=== PATIENT | female | born 1930 | race Caucasian/White ===

== ENCOUNTER 2016-05-08 08:10 | Inpatient (IN) | payer OTHER ==
[2016-05-08] MEDS ORDERED: NS 500 ML IV ONE (08:35)
[2016-05-08 09:05] LABS: MANUAL DIFF NEEDED? NO
[2016-05-08 09:09] LABS: BASO% 0.1 % (0.0-0.8); EOS# 0.01 X1000 (0.0-0.7); EOS% 0.1 % (0.0-10.0); HEMATOCRIT 39.8 % (37.0-47.0); HEMOGLOBIN 13.8 g/dL (12.0-16.0); LYMPH# 0.66 X1000 (1.2-3.4); LYMPH% 9.6 % (20.5-51.1); MCH 30.1 PG (27-31); MCHC 34.7 g/dL (33-37); MCV 86.9 FL (81-99); MONO# 0.57 X1000 (0.11-0.59); MONO% 8.3 % (1.7-9.3); MPV 10.6 FL (7.4-10.4); NEUT% 81.9 % (42.2-75.2); PLT 196 X1000 (130-400); RBC 4.58 XMIL (4.2-5.4)
--- NOTE | 2016-05-08 09:22 | PROVIDER DOCUMENTATION ---
HPI-General Adult - General Chief Complaint: Fall Stated Complaint: FALL,WEAKNESS Time Seen by Provider: 05/08/16 08:20 Allergies/Adverse Reactions: Patient Allergies Allergy/AdvReac Type Severity Reaction Status Date / Time Penicillins Allergy RASH Verified 05/08/16 10:00 Sulfa (Sulfonamide Allergy Unknown Verified 05/08/16 10:00 Antibiotics) Home Medications: Home Medication List Medication Instructions Recorded Confirmed Last Taken Type Aspirin [Aspir-Low] 81 mg PO DAILY 05/08/16 05/08/16 Unknown History Ergocalciferol (Vitamin D2) 50,000 unit PO DIRECTED 05/08/16 05/08/16 Unknown History [Drisdol] Gabapentin 200 mg PO BID 05/08/16 05/08/16 Unknown History Levothyroxine [Synthroid] 75 microgm PO DAILY 05/08/16 05/08/16 Unknown History Multivitamins/Minerals [Centrum 1 tab PO DAILY 05/08/16 05/08/16 Unknown History Silver] - History of Present Illness -Gen Adult Nature of Presenting Problems: patient is a 85 y/o F that presents to the ER with generalized pain after falling last pm and couldn't get up. patient reports scooting around the house until she got to the kitchen. She ate some peanut butter due to believing her blood sugar was low. patient reports laying in floor all night and she forgot that she had a life-alert call button on. She pushed it at 7am this morning and EMS arrived. she complains of generalized pain now Location of Pain/Injury: reports: generalized Pain Radiation: reports: no radiation Quality of Pain: reports: aching Severity: reports: mild, moderate Onset/Duration: reports: abrupt, last night Timing: reports: still present, improving Context/Activities at Onset: reports: none Modifying Factors: worse with: movement Associated Symptoms: reports: back/neck pain, joint pain, muscle aches, weakness , trouble walking. denies: chest pain, EENT symptoms, fatigue, fever/chills, genitourinary problems, nausea, vomiting Similar Symptoms Previously?: No Recently seen or treated by another doctor?: No Review of Systems - Adult - REVIEW OF SYSTEMS - ADULT Constitutional: denies: chills, fever Eyes: denies: decreased vision, blurred vision, double vision Ears, Nose, Mouth & Throat: denies: ear discharge, epistaxis, mouth/dental pain , mouth swelling Cardiovascular: denies: chest pain, palpitations, syncope Respiratory: denies: cough, shortness of breath, wheezing Gastrointestinal: denies: abdominal pain, diarrhea, nausea, vomiting Genitourinary: reports: no symptoms reported Musculoskeletal: reports: muscle aches. denies: frequent leg cramps Integumentary: reports: no symptoms reported Neurological: denies: dizziness/vertigo, headache/migraines, seizure, syncope Psychiatric: reports: no symptoms reported Endocrine: reports: no symptoms reported Hematologic/Lymphatic: reports: no symptoms reported Allergic/Immunologic: reports: no symptoms reported All Other Systems: Reviewed and Negative Past History - Adult - PAST MEDICAL HISTORY-ADULT Review of Records: reports: Old Records Reviewed, Nursing Assessment Review, Medications Reviewed Cardiovascular: reports: hyperlipidemia Endocrine/Immune: reports: Diabetes, thyroid disorder (hypo) - PRIOR SURGERIES/PROCEDURES Surgical/Procedure History: reports: reviewed, not pertinent - IMMUNIZATION STATUS Childhood Immunizations: See Nurse Assessment Flu Vaccine: See Nurse Assessment - FAMILY HISTORY Family History: reviewed, not pertinent - SOCIAL HISTORY Smoking: non-smoker Substance Use: none/never Alcohol Use Frequency: never Living Situation: family Physical Exam-General - PHYSICAL EXAM-ADULT Initial Vital Signs Reviewed: Yes - CONSTITUTIONAL General Appearance: alert, no apparent distress, other (urine smell) - EYES Eyes: PERRL/EOMI, pink conjunctivae - HEAD, EARS, NOSE, MOUTH & THROAT HENMT: normocephalic/atraumatic, moist mucous membranes, normal ENT inspection - NECK Neck: full range of motion, normal inspection. negative: lymphadenopathy - RESPIRATORY Respiratory: chest non-tender, lungs clear, normal breath sounds, no respiratory distress, no accessory muscle use - CARDIOVASCULAR Cardiovascular: regular rate, rhythm, no edema, no murmur - GASTROINTESTINAL (ABDOMEN) Abdominal Exam: normal bowel sounds, non tender, soft, no organomegaly, no pulsatile mass - MUSCULOSKELETAL Back Exam: no CVA tenderness, no vertebral tenderness Extremity: no pedal edema, normal capillary refill, pelvis stable, tenderness ( bilateral thighs with palpation) - SKIN Integumentary: normal color, warm/dry. negative: ecchymosis, laceration(s) - NEUROLOGIC Neurologic: grossly normal, no motor/sensory deficits - PSYCHIATRIC Psych/Mental Status: normal mood/affect, normal thought content, normal thought process, oriented x 3 Progress - PLAN OF CARE/RESULTS Progress/Plan/Lab Results: plan of care-labs, xrays, ct scans 1003-Hospitalist paged for admission Vital Signs Temp Pulse Resp BP 05/08/16 08:10 98.1 F 66 16 198/70 Penicillins Allergy (Verified 05/08/16 10:00) RASH Sulfa (Sulfonamide Antibiotics) Allergy (Verified 05/08/16 10:00) Unknown Aspirin [Aspir-Low] 81 mg PO DAILY 05/08/16 Ergocalciferol (Vitamin D2) [Drisdol] 50,000 unit PO DIRECTED 05/08/16 Gabapentin 200 mg PO BID 05/08/16 Levothyroxine [Synthroid] 75 microgm PO DAILY 05/08/16 Multivitamins/Minerals [Centrum Silver] 1 tab PO DAILY 05/08/16 I&O 05/07/16 05/08/16 05/09/16 06:59 06:59 06:59 Output Total 20 Balance -20 Laboratory 05/08/16 05/08/16 05/08/16 09:54 08:54 08:54 WBC RBC Hgb Hct MCV MCH MCHC RDW Std Deviation Plt Count MPV Immature Gran % (Auto) Neut % (Auto) Lymph % (Auto) [place] % (Auto) Eos % (Auto) Baso % (Auto) Immature Gran # (Auto) Neut # (Auto) Lymph # (Auto) [place] # (Auto) Eos # (Auto) Baso # (Auto) PT 10.7 INR 1.05 PTT (Actin FS) 21.0 L Sodium Potassium Chloride Carbon Dioxide Anion Gap BUN Creatinine Estimated GFR/1.73 m2 BUN/Creatinine Ratio Glucose Calculated Osmolality Calcium Magnesium Total Bilirubin AST ALT Alkaline Phosphatase Creatine Kinase Troponin T < 0.010 Total Protein Albumin Globulin Albumin/Globulin Ratio Urine Source CATH 05/08/16 05/08/16 08:54 08:54 WBC 6.87 RBC 4.58 Hgb 13.8 Hct 39.8 MCV 86.9 MCH 30.1 MCHC 34.7 RDW Std Deviation 13.1 Plt Count 196 MPV 10.6 H Immature Gran % (Auto) 0.0 Neut % (Auto) 81.9 H Lymph % (Auto) 9.6 L [place] % (Auto) 8.3 Eos % (Auto) 0.1 Baso % (Auto) 0.1 Immature Gran # (Auto) 0.00 Neut # (Auto) 5.62 Lymph # (Auto) 0.66 L [place] # (Auto) 0.57 Eos # (Auto) 0.01 Baso # (Auto) 0.01 PT INR PTT (Actin FS) Sodium 137 Potassium 3.7 Chloride 98 Carbon Dioxide 25 Anion Gap 14 BUN 14 Creatinine 0.7 Estimated GFR/1.73 m2 > 60 BUN/Creatinine Ratio 20 Glucose 131 H Calculated Osmolality 276 Calcium 8.9 Magnesium 1.9 Total Bilirubin 1.01 H AST 42 H ALT 19 Alkaline Phosphatase 93 Creatine Kinase 1112 H Troponin T Total Protein 7.3 Albumin 4.0 Globulin 3.3 Albumin/Globulin Ratio 1.2 Urine Source Orders Category Date Time Status Cardiac Monitoring DIRECTED Care 05/08/16 08:35 Active ED: Orthostatic Vital Signs (E as directed Care 05/08/16 08:35 Active Finger Stick Blood Sugar (ED) DIRECTED Care 05/08/16 08:35 Active [place] Cath Insertion ORDERED Care 05/08/16 09:58 Active IV Insertion ORDERED Care 05/08/16 08:35 Active Saline Loc NOW Care 05/08/16 08:35 Active Straight Catheterization ORDERED Care 05/08/16 08:36 Active CHEST-2 VIEWS [RAD] Stat Exams 05/08/16 08:35 Taken HEAD/C-SPINE W/O CONTRAST [CT] Stat Exams 05/08/16 08:35 Taken PELVIS W/O CONTRAST [CT] Stat Exams 05/08/16 08:35 Taken CBC WITH ELECTRONIC DIFF [HEME] Stat Lab 05/08/16 08:54 Completed CK PROFILE [SP CHEM] Stat Lab 05/08/16 08:54 Results COMPREHENSIVE METABOLIC PANEL [CHEM] Stat Lab 05/08/16 08:54 Results MAGNESIUM [CHEM] Stat Lab 05/08/16 08:54 Results PROTIME WITH INR [COAG] Stat Lab 05/08/16 08:54 Completed PTT [COAG] Stat Lab 05/08/16 08:54 Completed TROPONIN T Stat Lab 05/08/16 08:54 Completed URINALYSIS W/POSS RFLX CULT [URINALYSIS] Stat Lab 05/08/16 09:54 Results 0.9% Sodium Chloride Inj [Ns] 1,000 ml Med 05/08/16 09:58 Active IV 125 mls/hr 0.9% Sodium Chloride Inj [Ns] 500 ml Med 05/08/16 08:35 Discontinued IV 999 mls/hr EKG [EKG] Stat Ther 05/08/16 08:35 Ordered - XRAY 1 XRAY Study: Chest Impression: Normal XRAY Interpretation: neg per - CT/MRI 1 CT Study: Cervical Spine Impression: Abnormal CT Results: osteopenia, ddd, no fx 2 CT Study: Head Impression: Normal CT Results: negative 3 CT Study: Pelvis Impression: Abnormal CT Results: no fx or dislocation, constipation, motion artifact Right [place] - CONSULTS/PCP/HOSPITALIST Notification #1 *Consult/PCP/Hospitalist*: ( hospitalist) Time Discussed: 10:09 Reason/Comments: admit for rhabdo, contusions, and fall Consult Disposition: Will see in ED, Admit Departure - Departure Time of Disposition Order: 10:03 DIAGNOSIS: Generalized pain, Multiple contusions Fall on same level Qualifiers: Encounter type: initial encounter Qualified Code(s): W18.30XA - Fall on same level, unspecified, initial encounter Rhabdomyolysis Qualifiers: Rhabdomyolysis type: traumatic Encounter type: initial encounter Qualified Code (s): T79.6XXA - Traumatic ischemia of muscle, initial encounter Disposition: ADMITTED INPATIENT 09 Certified Medical Emergency: Emergent Condition: Stable Attestation - Scribe Verification/Attestation Scribe:: Nithin Bowers Acting as Scribe for:: Cristian Lomeli Scribe documention review:: This chart was documented by a scribe and accurately reflects the service the provider performed and the decisions made by the provider. Physician Attestation - Physician Attestation I, the provider, attest to the following statement:: Cristian Lomeli Physician documentation Attestation:: This documentation recorded by the scribe accurately reflects the service I personally performed and the decisions made by me.
[2016-05-08 09:25] LABS: INR 1.05; PROTIME 10.7 Seconds (9.2-11.7)
[2016-05-08 09:30] LABS: AGAP 14; ALKALINE PHOSPHATASE 93 U/L (32-104); BUN 14 mg/dL (8-22); CALCIUM 8.9 mg/dL (8.8-10.2); CHLORIDE 98 mmol/L (98-107); COSMO 276; GOT 42 U/L (10-30); GPT 19 U/L (10-36); MAGNESIUM 1.9 mg/dL (1.5-2.7); POTASSIUM 3.7 mmol/L (3.5-5.1); SODIUM 137 mmol/L (136-145); TCO2 25 mmol/L (25-35); TOTAL BILIRUBIN 1.01 mg/dL (0.20-1.00); TOTAL PROTEIN 7.3 g/dL (6.3-8.3)
[2016-05-08 09:46] LABS: CK PROFILE 1112 U/L (24-173)
[2016-05-08] MEDS ORDERED: NS 1,000 ML IV ONE (09:58)
[2016-05-08 10:03] LABS: URINE CULTURE NEEDED? NO; URINE MICRO REVIEW NEEDED? NO; URINE SOURCE CATH
--- NOTE | 2016-05-08 10:05 | Diag Imaging Result Document ---
PROCEDURE NAME: CHEST-2 VIEWS - 05/08/2016 FRONTAL AND LATERAL CHEST, TWO VIEWS: FINDINGS: The lungs are well expanded. No contusions or pneumothoraces. The mediastinum is not widened. No pleural effusions. No collapsed thoracic vertebra. IMPRESSION: No injury. -6
[2016-05-08 10:07] LABS: BILIRUBIN URINE NEGATIVE (NEGATIVE); BLOOD URINE NEGATIVE (NEGATIVE); COLOR YELLOW; GLUCOSE URINE NEGATIVE (NEGATIVE); LEUKOCYTES URINE NEGATIVE (NEGATIVE); NITRITE URINE NEGATIVE (NEGATIVE); PH URINE 7.5; PROTEIN URINE NEGATIVE (NEGATIVE); SP GRAVITY URINE 1.012; TURBIDITY URINE CLEAR (CLEAR); UR EPITHELIAL CELLS <10 /HPF (<10); URINE BACTERIA NEGATIVE /HPF; URINE RBC <10 /HPF (<10); URINE WBC <10 /HPF (<10); UROBILINOGEN URINE NORMAL (NORMAL)
[2016-05-08 10:15] LABS: CK INDEX 1.5 (0.0-2.5); CK-MB 16.14 ng/mL (0.0-5.0)
--- NOTE | 2016-05-08 10:28 | Diag Imaging Result Document ---
PROCEDURE NAME: HEAD/C-SPINE W/O CONTRAST - 05/08/2016 CT HEAD WITHOUT CONTRAST: A dose-reduction protocol was used. COMPARISON: No comparison exam. FINDINGS: There are some atrophic changes and chronic-appearing microvascular ischemic changes. There is no indication of recent infarct, although acute infarcts may not be immediately visible. There is no evidence of intracranial hemorrhage, mass effect, midline shift, or hydrocephalus. There is no skull fracture. There is a 1 cm round subcutaneous lesion noted at the superior scalp on the left, possibly representing sebaceous cyst. IMPRESSION: No visible acute intracranial abnormality. No evidence of intracranial injury. CT CERVICAL SPINE WITHOUT CONTRAST: A dose-reduction protocol was used. Axial and reformatted sagittal and coronal images are obtained. COMPARISON: No comparison exam. FINDINGS: The bones are possibly osteopenic. There are substantial degenerative changes at the atlantoaxial articulation. There are calcifications at the transverse ligament. There is degenerative disk disease which is most prominent at C5-6. There are some degenerative changes of multilevel facets. There is no fracture identified. There is no subluxation seen. There is no precervical soft tissue swelling identified. IMPRESSION: 1. Possible osteopenia. 2. Multilevel degenerative disease, most prominent at the atlantoaxial articulation and at C5-6. 3. No evidence of fracture or subluxation. [facility]
--- NOTE | 2016-05-08 10:41 | Diag Imaging Result Document ---
PROCEDURE NAME: PELVIS W/O CONTRAST - 05/08/2016 CT [place] PELVIS WITHOUT CONTRAST: A dose-reduction protocol was used. Axial and reformatted coronal and sagittal images are obtained. COMPARISON: No comparison exam. FINDINGS: There is what appears to represent artifact from motion at the right ilium. While this precludes the definitive exclusion of fracture at this location, there probably is no ilium fracture present. Otherwise, there is no pelvis fracture identified. There is no hip fracture or dislocation identified. There are some degenerative changes of the hips, most prominent on the right. There is no sacral fracture identified. There is retained fecal debris in the visualized colon suggesting constipation. There are calcifications of the uterus which may relate to small fibroids. IMPRESSION: 1. No fracture identified. No hip dislocation. 2. Apparent constipation noted. [facility]
--- NOTE | 2016-05-08 11:00 | ED EKG INTERP ---
EKG Interpretation - EKG Time of EKG reading by physician:: 10:21 EKG Read and Signed by:: Cristian Lomeli EKG Interpretation (*Must complete 3 of following elements*): Normal Rate: 66 Rhythm: NSR [place]: normal QRS: normal [place] Interval: normal ST Wave: normal Attestation - Scribe Verification/Attestation Scribe:: Nithin Bowers Acting as Scribe for:: Cristian Lomeli Scribe documention review:: This chart was documented by a scribe and accurately reflects the service the provider performed and the decisions made by the provider. Physician Attestation - Physician Attestation I, the provider, attest to the following statement:: Cristian Lomeli Physician documentation Attestation:: This documentation recorded by the scribe accurately reflects the service I personally performed and the decisions made by me.
--- NOTE | 2016-05-08 11:10 | ED EKG INTERP ---
EKG Interpretation - EKG Time of EKG reading by physician:: 10:59 EKG Read and Signed by:: Cristian Lomeli EKG Interpretation (*Must complete 3 of following elements*): Abnormal Rate: 114 Rhythm: a-fib with rvr QRS: other (low QRS) ST Wave: normal Prior EKG Comparison: changes noted (from 05/08/16 1021) Attestation - Scribe Verification/Attestation Scribe:: Nithin Bowers Acting as Scribe for:: Cristian Lomeli Scribe documention review:: This chart was documented by a scribe and accurately reflects the service the provider performed and the decisions made by the provider. Physician Attestation - Physician Attestation I, the provider, attest to the following statement:: Cristian Lomeli Physician documentation Attestation:: This documentation recorded by the scribe accurately reflects the service I personally performed and the decisions made by me.
[2016-05-08] MEDS ORDERED: CORDARONE 150 MG/D5W 100 ML IV ONE (11:17)
[2016-05-08] MEDS ORDERED: MAGNESIUM SULFATE 1 GM/D5W 100 ML IV ONE (11:18)
[2016-05-08] MEDS ORDERED: CORDARONE 360 MG/D5W 200 ML IV ONE (11:28)
[2016-05-08 12:23] LABS: FREE T4 1.28 ng/dL (0.93-1.70)
--- NOTE | 2016-05-08 13:03 | EKG Report ---
Test Performed on : 05/08/2016 10:59:12 AM Test Reason : Chest Pain Blood Pressure : / mmHG Vent. Rate : 114 BPM Atrial Rate : 111 BPM P-R Int : 000 ms QRS Dur : 080 ms QT Int : 336 ms P-R-T Axes : 000 003 196 degrees QTc Int : 463 ms Atrial fibrillation. with rapid ventricular response. Low voltage QRS Septal infarct , age undetermined ST & T wave abnormality, consider inferolateral ischemia Abnormal ECG No previous ECGs available Unconfirmed Result
--- NOTE | 2016-05-08 13:07 | HISTORY AND PHYSICAL ---
PRIMARY CARE PROVIDER: Dr. Boswell. CHIEF COMPLAINT: Fell last night, lost her balance, right neck and shoulder sore. HISTORY OF PRESENT ILLNESS: Ms. Galicia is an 85-year-old female with a medical history of diabetes mellitus type 2, hypothyroidism, GERD, arthritis, hyperlipidemia, constipation, and neuropathy, who apparently states she was up trying to fix herself something to eat and lost her balance. She fell backwards onto her right shoulder/neck area. She denies hitting her head or passing out. Complains of some achiness in the right neck and some scratches that are behind her right shoulder that feel itchy, but these are not erythematous. She states that she has had increased weakness over the last year to year and a half. She exercises daily with range of motion exercises at home when she is sitting. She lives alone but has family that lives about 2 miles away. She denies having any issues with enough oral intake. She says she eats well, drinks lots of water, but it was found that her CKs were significantly elevated and appears to be dehydration or it could be from possible muscle damage from falling, but she still has range of motion. She uses a cane at home but at the time was not using it. She denies any weight loss or gain. Denies fever, chills. Denies vomiting but did have some nausea last night. Denies blood in her urine or stool. She does state that she has had some lower extremity swelling and more pain in the right leg than the left. She denies having a history of atrial fibrillation but on the telemetry at the bedside it appears that she is in atrial fibrillation. She had a rate of 108 to 120s. She denied feeling short of breath, having chest pain, or shortness of breath. She states that she has never been told she has had atrial fibrillation. Her EKG on admit was 66 in sinus rhythm. Repeat EKG showed atrial fibrillation with RVR at a rate of 114. Will admit to [facility], start her on amiodarone given that she has not been in atrial fibrillation for very long, and consult cardiology for further work up. Will do an echocardiogram also. PAST MEDICAL HISTORY: Diabetes mellitus type 2, hypothyroidism, GERD, arthritis , left hand trigger finger, hyperlipidemia, constipation, and diabetic neuropathy. PAST SURGICAL HISTORY: Bilateral cataracts. SOCIAL HISTORY: Denies tobacco, alcohol, or illicit drug use. She is from [place]. Lives at home alone. She has family that lives about 2 miles away. She uses a cane for ambulation. FAMILY HISTORY: Mother when she was a young girl from pneumonia. Father had anemia. She has a son who has hypertension. REVIEW OF SYSTEMS: Fourteen point review of systems were complete and all were negative except for those mentioned in the above HPI. LABORATORY DATA: White blood cells 6,000, hemoglobin 13, hematocrit 39, platelet count 196,000. INR 1.05, PTT is 21. Sodium 137, potassium 3.7, BUN 14, creatinine 0.7, glucose 131, calcium 8.9, magnesium 1.9. Total bilirubin is 1.01, AST 42, ALT 19. CK is 1,112, MB 16.14. Troponins less than 0.01. Urinalysis only had 20 ketones. Otherwise negative. IMAGING: Chest x-ray: No injury. No acute findings. Head and cervical spine CT: Possible osteopenia. Multilevel degenerative disease, most prominent at the atloaxial articulation and at C5-6. No evidence of fracture or subluxation. No visible acute intracranial abnormality. No evidence of intracranial injury. Pelvic CT: No fracture identified. No hip dislocation. Apparent constipation though. EKG at 11 on admit shows sinus rhythm. Rate was 66. Repeat EKG was atrial fibrillation with RVR at a rate of 114. PHYSICAL EXAMINATION: VITAL SIGNS: Temperature 98.1 degrees, heart rate on admit 66 sinus rhythm, now 132 atrial fibrillation, respiratory rate 20, blood pressure 169/99, O2 saturation 96 to 97 % on room air. She is 5 feet tall, 150 pounds, BMI 29.3. GENERAL: Ms. Galicia is an 85-year-old female in no acute distress. Answers questions appropriately. HEENT: Atraumatic, normocephalic. Pupils equal, round, reactive to light. Extraocular movements are intact. Glasses for vision. NECK: No JVD or carotid bruits noted. CARDIOVASCULAR: Irregularly irregular, tachycardic rate and rhythm. No rubs, gallops, or murmurs. PULMONARY: Clear to auscultation. Bilateral breath sounds. No accessory muscle use or work of breathing noted. GI: Soft, nontender, nondistended. Positive bowel sounds x4. EXTREMITIES: Trace edema in the lower extremities. There are +1 dorsalis pedal pulses, +2 radial pulses. Full range of motion noted of all extremities. NEUROLOGIC: A O x4 with decreased sensation bilateral lower extremities. SKIN: Warm, dry, intact. There is some discoloration of the bilateral lower extremities; it looks like possible venous stasis. Right shoulder has some scratches secondary to her fall from last night. ASSESSMENT AND PLAN: 1. Atrial fibrillation with rapid ventricular response, new onset. Could possibly be paroxysmal and she does not realize it. She has no symptoms. No shortness of breath. No chest pain. No feelings of heart racing. Electrolytes are normal. Since she was sinus rhythm on admit and converted to atrial fibrillation we will go ahead and do amiodarone bolus. Will have to follow her bilirubin levels as they are slightly elevated on admit and consult cardiology for anticoagulation therapy and further treatment. 2. Rhabdomyolysis. CKs are elevated. Troponins are negative. No complaints of chest pain. She states she drinks enough fluids. Her creatinine and BUN are normal but will go ahead and do IV fluid hydration. 3. Diabetes mellitus. Sliding scale insulin, pattern blood glucoses, and diabetic diet. Hemoglobin A1c for the morning. 4. Hypothyroidism. We will do a TSH and T4 on admit. Continue on her home Synthroid. 5. Hyperlipidemia she states she takes a statin. Will hold for now. 6. Hyperbilirubinemia, slightly elevated. Could be from dehydration. We will hold her statin and monitor for now. 7. Constipation. We will do stool softeners twice a day. 8. Neuropathy. Continue her Neurontin. 9. Arthritis. 10. She has hypertension here. She is not on anything at home for this. May consider starting a beta mt given her heart rate being in the 100s and she is hypertensive at this time. 11. Deep venous thrombosis prophylaxis. Lovenox. 12. Gastrointestinal prophylaxis. Prilosec. Dictated by GIANNA Cat for Shane Alarcon MD [facility]
--- NOTE | 2016-05-08 13:32 | CONSULTATION ---
DATE OF CONSULTATION: 05/08/2016 HISTORY OF PRESENT ILLNESS: An 85-year-old, lady came to the emergency room after having fallen. She was at her home. She went to the kitchen and she fell to the floor. She thought she had low blood sugar, as she is a diabetic. She ate peanut butter and lay on the floor all night. She forgot that she had a Life Alert call button. She pushed it at 7 a.m. and was brought to the emergency room. When she came here, initial rhythm was sinus rhythm. Subsequently, she went into atrial fibrillation. She does not complain of chest pain per se, but having had fallen, she said she has had generalized body ache. She does not say she completely lost consciousness. She says she was aware of her surroundings. She does not perceive any palpitations. As far as chest discomfort is concerned, no anginal symptoms. Some tightness in the neck was noted. There is no orthopnea. She is otherwise active. Has hypothyroidism and takes medications for the same. REVIEW OF SYSTEMS: GI: There is no history of nausea, vomiting, diarrhea. There is no history of hematemesis or melena. Central nervous system: No focal weakness to suggest a CVA. : There is no dysuria or hematuria. PAST MEDICAL HISTORY: Hypothyroidism, osteoporosis. At home, she takes vitamin D, enteric-coated aspirin 81 mg a day. Levothyroxine 75, gabapentin 200. There is no previous history of hypertension or diabetes. There is no past history of stroke. ALLERGIES: She is allergic to penicillin and sulfonamides. PHYSICAL EXAMINATION: Vital Signs: Blood pressure was 154/86. Cardiovascular System: Normal jugular venous pressure. There is no thyromegaly. No carotid bruit. First and second heart sounds were heard. There was no S3 gallop. There was faint systolic murmur. Respiratory System: Normal air entry. There is no crepitations or rhonchi. Abdomen: Soft, nontender. There was no guarding or rigidity. Bowel sounds were heard. Central nervous system: Alert, oriented, was moving all 4 extremities. Extremities: Examination of extremities revealed no pedal edema. HEENT: Atraumatic, normocephalic. Pupils were equal and reacting to light. LABORATORY EXAMINATION: Revealed a sodium 137, potassium 3.7, BUN 14, creatinine 0.7. Troponin normal at 0.101. Creatine kinase 1112 with a CK-MB of 16.14, CK index of 1.5. Glucose 131, calcium 8.9. TSH 1.05. Free T4 of 1.28. Hemoglobin 13.8, hematocrit 39, platelet count of 196. WBC 6.87. Urine unremarkable. ASSESSMENT AND PLAN: Ms. Vianca Galicia is an 85-year-old, lady with history of hypothyroidism, osteoporosis. Fell down at home. She says she did not lose any consciousness, but she was on the floor for a long time as mentioned above. She came in. Her first EKG revealed normal sinus rhythm. Subsequently, she was noted to be in atrial fibrillation. She was started on an amiodarone drip. RECOMMENDATIONS: 1. We will get an echocardiogram to assess cardiac and valvular function. Her CKs are elevated secondary to rhabdomyolysis likely. We will get serial cardiac enzymes. She denies any chest pain. However, she has had some tightness in her neck and I am not sure whether that was related to tachycardia or her fall. She had a CT scan done of her pelvis, head and her cervical region as well. There was no obvious intracranial bleed. No other obvious bony injuries. If she converts to sinus rhythm, we will plan for a stress test to rule out ischemia. 2. Should she be continuing in atrial fibrillation, she has already been started on amiodarone. We will anticoagulate her with Lovenox. Will plan for a MIGUE cardioversion if necessary. I have discussed this in detail with her. Will also discuss with her family as well. 3. We will repeat her BMP and an EKG in the morning. Thank you for the consult. We will follow hospital course.
[2016-05-08] MEDS ORDERED: TYLENOL PO PRN (13:39)
[2016-05-08] MEDS ORDERED: ZOFRAN IV PRN (13:39)
[2016-05-08] MEDS ORDERED: LOVENOX SUBQ SCH (13:39)
[2016-05-08] MEDS: LOVENOX SUBQ SCH (14:47)
[2016-05-08 15:07] LABS: HEMOGLOBIN A1C 8.5 % (4.8-6.0)
[2016-05-08 15:45] LABS: CK-MB 18.33 ng/mL (0.0-5.0)
[2016-05-08] MEDS: HUMULIN R SUBQ SCH (17:51)
[2016-05-08] MEDS ORDERED: CORDARONE 540 MG in D5W 289.2 ML IV ONE (19:00)
[2016-05-08] MEDS: NEURONTIN PO SCH (20:20)
[2016-05-08] MEDS: PERICOLACE PO SCH (20:20)
[2016-05-08] MEDS: PRILOSEC PO SCH (20:20)
[2016-05-08 22:27] LABS: CK INDEX 0.9 (0.0-2.5); CK-MB 14.21 ng/mL (0.0-5.0)
[2016-05-09] MEDS: HUMULIN R SUBQ SCH ×5 (01:08→22:02)
[2016-05-09] MEDS: LOVENOX SUBQ SCH (01:19)
[2016-05-09 05:32] LABS: MANUAL DIFF NEEDED? NO
[2016-05-09 05:41] LABS: BASO% 0.4 % (0.0-0.8); EOS# 0.04 X1000 (0.0-0.7); EOS% 0.8 % (0.0-10.0); HEMATOCRIT 36.8 % (37.0-47.0); HEMOGLOBIN 12.4 g/dL (12.0-16.0); LYMPH# 1.13 X1000 (1.2-3.4); LYMPH% 23.1 % (20.5-51.1); MCH 29.5 PG (27-31); MCHC 33.7 g/dL (33-37); MCV 87.6 FL (81-99); MONO# 0.33 X1000 (0.11-0.59); MONO% 6.7 % (1.7-9.3); PLT 207 X1000 (130-400)
[2016-05-09 06:08] LABS: INR 1.12; PROTIME 11.4 Seconds (9.2-11.7); PTT 27.9 Seconds (22.0-36.0)
[2016-05-09 06:10] LABS: AGAP 12; ALBUMIN 3.2 g/dL (3.5-5.0); ALKALINE PHOSPHATASE 76 U/L (32-104); BUN 13 mg/dL (8-22); CALCIUM 8.4 mg/dL (8.8-10.2); CHLORIDE 103 mmol/L (98-107); COSMO 280; GOT 44 U/L (10-30); GPT 26 U/L (10-36); MAGNESIUM 2.2 mg/dL (1.5-2.7); POTASSIUM 3.8 mmol/L (3.5-5.1); SODIUM 138 mmol/L (136-145); TCO2 23 mmol/L (25-35); TOTAL BILIRUBIN 0.84 mg/dL (0.20-1.00); TOTAL PROTEIN 5.8 g/dL (6.3-8.3)
[2016-05-09 06:43] LABS: CK INDEX 0.8 (0.0-2.5); CK-MB 10.29 ng/mL (0.0-5.0)
--- NOTE | 2016-05-09 07:20 | EKG Report ---
Test Performed on : 05/09/2016 06:25:36 AM Test Reason : afib Blood Pressure : / mmHG Vent. Rate : 057 BPM Atrial Rate : 057 BPM P-R Int : 174 ms QRS Dur : 078 ms QT Int : 488 ms P-R-T Axes : 081 -10 042 degrees QTc Int : 474 ms Sinus bradycardia. Possible Anterior infarct (cited on or before 08-MAY-2016) Abnormal ECG When compared with ECG of 08-MAY-2016 10:59, (Unconfirmed) Sinus rhythm. has replaced Atrial fibrillation. Vent. rate has decreased BY 57 BPM Serial changes of evolving Anterior infarct present Confirmed by Flaca PATRICK, Ricki Arreola ([id number]) on 05/09/2016 3:23:43 PM
[2016-05-09] MEDS: SYNTHROID PO SCH (08:31)
[2016-05-09] MEDS: NEURONTIN PO SCH ×2 (08:31→21:50)
[2016-05-09] MEDS: CENTRUM SILVER PO SCH (08:31)
[2016-05-09] MEDS: PERICOLACE PO SCH ×2 (08:31→21:50)
[2016-05-09] MEDS: PRILOSEC PO SCH ×2 (08:31→18:40)
[2016-05-09] MEDS: ASPIRIN EC PO SCH (08:31)
[2016-05-09] MEDS ORDERED: ASPIRIN PO SCH (09:00)
--- NOTE | 2016-05-09 09:01 | ECHO REPORT ---
ORDER DATE: 05/08/2016 INTERPRETING PHYSICIAN: Dr. Monaco REQUESTING PHYSICIAN: CLINICAL INDICATIONS: An 85-year-old female atrial fibrillation, dyspnea. M-MODE MEASUREMENTS: Right ventricle: 2.3 cm. Left ventricle end diastole: 3.9 cm. Left ventricle end systole: 1.8 cm. Posterior wall: 0.7 cm. Interventricular septum: 0.7 cm. Left atrium: Not adequately measured. Aortic root: 2.9 cm. SUMMARY OF 2-DIMENSIONAL IMAGING: The left ventricular function appears to be normal. Ejection fraction is probably in the order of 65-70%. The right ventricle is normal. The aortic valve shows some degree of sclerosis. It opens normally. Color flow mapping unremarkable. The mitral annulus shows moderate calcification. The patient is in atrial fibrillation. Pulse wave Doppler of mitral inflow shows a single filling wave. There is an additional small pseudo A wave. This probably represents either activity of atrial flutter or just high diastolic pressure in the left atrium. The tricuspid valve shows a mild degree of regurgitation. The inferior vena cava is mildly enlarged. Pulmonary pressure is estimated at 32-37 mmHg. The pulmonic valve looks normal. Color flow mapping indicates a mild degree of regurgitation. There is no pericardial effusion, masses or thrombus. Clinical correlation recommended.
[2016-05-09] MEDS ORDERED: LEXISCAN ONE (11:31)
--- NOTE | 2016-05-09 11:49 | PROGRESS NOTE ---
DATE: 05/09/2016 SUBJECTIVE: This patient states that she is feeling much better. She is not complaining of any chest pain, shortness of breath, nausea, vomiting, diarrhea or constipation. OBJECTIVE: Vital Signs: Temperature 97.7, pulse 55. Respiratory rate 16, blood pressure 156/56, oxygen saturation 100% on room air. HEENT: Head normocephalic. No trauma. PERRLA. Neck: Supple. No JVD. No masses. Central trachea. Cardiovascular: RRR. No murmurs. No gallops. Chest: Clear to auscultation. No wheezing. No rales. Abdomen: Soft, nontender, nondistended. No hepatosplenomegaly. Extremities: No edema. No clubbing. No cyanosis. Neurological: The patient is alert and oriented x3. Decreased sensation bilaterally at the level of the lower extremities. Skin: Warm dry and intact, with some venous insufficiency changes at the level of the lower extremities as well. LABORATORY: WBC 4.9, hemoglobin 12.4, hematocrit 36.8, platelets 207. Sodium 138, potassium 3.8, chloride 103, bicarbonate 23, BUN 13, creatinine 0.8, glucose 180, calcium 8.4. CK 1267, albumin 3.2. ASSESSMENT AND PLAN: 1. Atrial fibrillation with rapid ventricular rate, new onset. At this moment, this patient showed sinus bradycardia. She is not complaining of shortness of breath or chest pain. We will continue to monitor this patient in the ICU. Cardiology Department is following this patient. 2. Rhabdomyolysis. CK is getting better. Her kidney function is stable, normal creatinine and BUN. We will continue with IV fluids. 3. Type 2 diabetes. We will continue with pattern of blood sugar and the sliding scale insulin. Hemoglobin A1c is elevated at 8.5. 4. Hypothyroidism. TSH and T4 is normal, continue with the same management. 5. Hyperlipidemia. Continue with the same management. 6. Hyperbilirubinemia, resolved. Likely secondary to dehydration. 7. Constipation. Continue with stool softeners. 8. Neuropathy, continue with Neurontin. 9. Arthritis, aware. 10. Deep vein thrombosis prophylaxis provided by Lovenox and gastrointestinal prophylaxis, she is on Prilosec.
[2016-05-09] MEDS: CORDARONE PO SCH (13:21)
[2016-05-09] MEDS ORDERED: HUMULIN R SUBQ ONE (15:01)
[2016-05-09] MEDS ORDERED: NS 500 ML IV ONE (15:15)
--- NOTE | 2016-05-09 16:00 | Diag Imaging Result Document ---
PROCEDURE NAME: MYOCARDIAL PERF SCAN, STR/REST - 05/09/2016 LEXISCAN SESTAMIBI INTERPRETATION: SUMMARY: The patient was administered 10.6 millicuries of technetium-99m sestamibi after which resting cardiac images were obtained. The patient was suffering stress using left Lexiscan protocol. Following the administration of Lexiscan the heart rate went from 68 beats per minute to 82 beats per minute, while the blood pressure went from 162/72 to 104/61. With Lexiscan the patient denied chest discomfort. Following the administration of Lexiscan the patient was administered 31.7 millicuries of technetium-99m sestamibi after which gated stress cardiac images were obtained. Baseline ECG demonstrated sinus rhythm and inferolateral ST and T-wave abnormality. Right axis deviation also demonstrated. Following administration of Lexiscan ECG showed no significant change from baseline. SPECT images were reconstructed in the short, horizontal, and vertical long axis,. Review of these images demonstrated homogeneous uptake of radiopharmaceutical on both stress and resting images. Gated images demonstrate calculated left ventricular ejection fraction of 91% with symmetrical wall motion/thickening. CONCLUSIONS: 1. Adequate response to Lexiscan. 2. Clinically negative for chest pain. 3. Electrocardiographically baseline ST and T-wave abnormality did not change significantly with Lexiscan 4. Normal Lexiscan sestamibi images.
[2016-05-09] MEDS ORDERED: XARELTO PO SCH (17:00)
[2016-05-10 05:22] LABS: MANUAL DIFF NEEDED? NO
[2016-05-10 05:35] LABS: BASO% 0.5 % (0.0-0.8); EOS# 0.19 X1000 (0.0-0.7); EOS% 4.7 % (0.0-10.0); HEMATOCRIT 36.3 % (37.0-47.0); HEMOGLOBIN 12.1 g/dL (12.0-16.0); LYMPH# 1.33 X1000 (1.2-3.4); LYMPH% 32.8 % (20.5-51.1); MCH 29.4 PG (27-31); MCHC 33.3 g/dL (33-37); MCV 88.1 FL (81-99); MONO# 0.39 X1000 (0.11-0.59); MONO% 9.6 % (1.7-9.3); MPV 10.7 FL (7.4-10.4); NEUT% 52.4 % (42.2-75.2); PLT 195 X1000 (130-400); RBC 4.12 XMIL (4.2-5.4)
[2016-05-10 05:53] LABS: AGAP 9; BUN 14 mg/dL (8-22); CALCIUM 8.2 mg/dL (8.8-10.2); CHLORIDE 105 mmol/L (98-107); COSMO 279; SODIUM 139 mmol/L (136-145); TCO2 25 mmol/L (25-35)
[2016-05-10] MEDS: SYNTHROID PO SCH (06:33)
[2016-05-10] MEDS: PRILOSEC PO SCH (06:33)
[2016-05-10] MEDS ORDERED: HUMULIN 70/30 SUBQ SCH (07:00)
[2016-05-10] MEDS ORDERED: TRESIBA SUBQ SCH (07:00)
[2016-05-10] MEDS ORDERED: NON-FORMULARY BULK MED SUBQ SCH (07:00)
--- NOTE | 2016-05-10 08:01 | DISCHARGE SUMMARY ---
ADMISSION DATE: 05/08/2016 DISCHARGE DATE: 05/09/2016 CONSULTATIONS: Dr. Cruz with Cardiology. PERTINENT PROCEDURES: 1. Head cervical CT showed no visible acute intracranial abnormality. No evidence of intracranial injury. Possible osteopenia, multilevel degenerative disk disease most prominent at atloaxial articulation and a C5-6. No evidence of fracture or subluxation. 2. Pelvis CT showed no fracture identified. No hip dislocation. Apparent constipation noted. DISCHARGE DIAGNOSES: 1. Atrial fibrillation with rapid ventricular response, new onset, resolved. The patient converted with IV amiodarone, transitioned to p.o. We will start Xarelto, and follow up with Cardiology, Dr. Cruz, in 3 to 4 weeks. 2. Rhabdomyolysis, improved with IV fluids. 3. Diabetes mellitus type 2, uncontrolled. A1c is 8.5. Continue home medications, diabetic diet. 4. Hypothyroidism. TSH and T4 normal. Continue with Synthroid. 5. Hyperlipidemia. Continue with statin. 6. Hyperbilirubinemia, resolved, secondary to dehydration. 7. Constipation. Continue stool softeners. 8. Neuropathy. Continue Neurontin. 9. Arthritis, aware. 10. Dehydration, resolved with IV fluids. HOSPITAL COURSE: Briefly, this is an 85-year-old, female, past medical history of diabetes mellitus type 2, hypothyroidism, GERD, arthritis, hyperlipidemia, constipation and neuropathy, who states that she was up trying to fix herself something to eat. She lost her balance, she fell backwards onto her right shoulder and neck area. Denies hitting her head or passing out. Complains of some achiness in the right neck and scratches that are behind her right shoulder that feel itchy, but not erythematous. She exercises daily with range of motion at home when she is sitting. She lives alone but does have family members that live 2 miles away. Denies any issues with having enough oral intake. States she eats well and drinks lots of water, but her CK's were found to be significantly elevated. She appeared to be dehydrated, could be secondary from muscle damage from falling. Patient does use a cane at home, but she was not using it at the time that she fell. While in the ED, she had a heart rate of 108 to 120s. There was no shortness of breath, no chest pain associated with this. The EKG on admit showed sinus rhythm. A repeat EKG showed atrial fibrillation with rapid ventricular response, a rate in the 1 teens. She was admitted to the ICU, started on amiodarone with a cardiology consult, as well as, IV fluid hydration for her rhabdomyolysis. The patient did have an echocardiogram that is still pending. Patient did convert to sinus rhythm with p.o. amiodarone. She was started on Xarelto. The patient did not have MIGUE cardioversion. Serial cardiac enzymes were negative. Her CPKs were trending down. Cardiology assessed the patient today, feels that she is appropriate for discharge home. She did have a normal stress test that was done today. Patient was given soda, as well as, a hamburger. When she came up from her studies her blood sugars was running in the 400s. She was started back on her home insulin as well, was given a 500 saline bolus, and if the patient's blood sugars can get around the 180s, the patient can discharge home today. If not she will go in the morning. She will resume her diabetic diet, as well as, her home medications. VITAL SIGNS: At the time of discharge, temperature is 98.7, heart rate 74, respirations 12, blood pressure 160/67, O2 is 100% on room air. DISCHARGE MEDICATIONS: 1. Aspirin 81 mg p.o. daily. 2. Centrum 1 tab p.o. daily. 3. Vitamin D2, 50,000 units p.o. as directed. 4. Synthroid 75 mcg p.o. daily. 5. Gabapentin 200 mg p.o. b.i.d. 6. Amiodarone 4 mg p.o. daily. 7. Humulin 70/30, 20 units subcu a.c.b. 8. Tresiba 10 units subcu a.c.b. 9. Xarelto 20 mg p.o. with supper. DISCHARGE DIET: Diabetic healthy diet. DISCHARGE FOLLOWUP: The patient is being discharged home. She will need to follow up with Dr. Cruz, in 3 to 4 weeks, and she can follow up with her primary care physician, Dr. Sanjay Boswell in 7 to 10 days. Again, if the patient's blood sugar gets in the 180s, she can be discharged home today. If not she will be discharged home in the morning, after she has been started back on her medicines, and continued on a diabetic diet. TIME SPENT: Discharge time 30 minutes. Dictated by GIANNA Castellanos for Shane Alarcon MD
[2016-05-10 08:19] VITALS: BP 161/85
[2016-05-10] MEDS: CENTRUM SILVER PO SCH (08:30)
[2016-05-10] MEDS: NEURONTIN PO SCH (08:30)
[2016-05-10] MEDS: PERICOLACE PO SCH (08:30)
[2016-05-10] MEDS: CORDARONE PO SCH (08:30)
[2016-05-10] MEDS: ASPIRIN EC PO SCH (08:30)
--- NOTE | 2016-05-10 11:19 | DISCHARGE SUMMARY ---
ADMISSION DATE: 05/08/2016 DISCHARGE DATE: 05/10/2016 ADDENDUM REPORT: The patient was discharged yesterday contingent that her blood sugars got down to the 180s. That did not happen before the end of the dayshift so the patient did stay overnight. Her blood sugar is 118 this morning and heart rate is still stable in the 50s and 60s, sinus rhythm, so she will be discharged home today. Dictated by GIANNA Castellanos for Regulo Parra MD
--- NOTE | 2016-05-12 14:59 | Extremity Venous Study ---
PROCEDURE NAME: Venous U/S Bilateral Legs - 05/08/2016 REFERRING PHYSICIAN: Dr. Schneider. READING PHYSICIAN: Dr. Guido. MANAGER ANDROID: Belle. INDICATION: Bilateral leg swelling and left leg pain. FINDINGS: The deep and superficial veins of both lower extremities were imaged throughout their course. All are compressible with forward flow. No thrombus is appreciated. Reflux is noted in the right common femoral vein for 4.75 seconds as well as the right greater saphenous vein but the time was not measured. In the right popliteal vein there is reflux for 2 cm/sec. There is also reflux in the left common femoral vein for 4.97 seconds. INTERPRETATION: No evidence of deep or superficial venous thrombosis of either lower extremity. There is reflux disease as described above. Further imaging with a dedicated reflux study may be helpful as the patient appears to have significant reflux disease.
[2016-05-14] MEDS ORDERED: VITAMIN D PO SCH (09:00)
== END 2016-05-10 11:05 | disposition home or self-care (01) | DRG 309 ==
LOC: EDBD → ED 08:10 → EDIPHOLD 12:25 → 3S 17:35
PROVIDERS: ATTEND Internal Medicine
DX: I48.0 Paroxysmal atrial fibrillation (principal); M62.82 Rhabdomyolysis; E11.40 Type 2 diabetes mellitus with diabetic neuropathy, unspecified; M54.2 Cervicalgia; E86.0 Dehydration; E03.9 Hypothyroidism, unspecified; E11.65 Type 2 diabetes mellitus with hyperglycemia; K21.9 Gastro-esophageal reflux disease without esophagitis; E78.5 Hyperlipidemia, unspecified; I10 Essential (primary) hypertension; K59.00 Constipation, unspecified; M19.90 Unspecified osteoarthritis, unspecified site; W19.XXXA Unspecified fall, initial encounter; Z82.49 Family history of ischemic heart disease and other diseases of the circulatory system; M81.0 Age-related osteoporosis without current pathological fracture; Z79.899 Other long term (current) drug therapy; Z79.82 Long term (current) use of aspirin
CPT/HCPCS: 70450; 71020; 72125; 72192; 78452; 80048; 80053; 80061; 81001; 82550; 82553; 82948; 83036; 83721; 83735; 84439; 84443; 84484; 85025; 85610; 85730; 93005; 93010; 93017; 93306; 93970; 96365; 96366; 96367; 96372; 96375; A9500; J0282; J1650; J2405; J3475; J7030; J7040; J7060; P9612; 97116-GP; 99285-25

== ENCOUNTER 2018-06-02 13:13 | Inpatient (IN) ==
[2018-06-02 14:17] LABS: URINE SOURCE CATH
[2018-06-02 14:20] LABS: BASO# 0.02 X1000 (0.0-0.2); BASO% 0.3 % (0.0-0.8); EOS# 0.02 X1000 (0.0-0.7); EOS% 0.3 % (0.0-10.0); HEMATOCRIT 41.6 % (37.0-47.0); HEMOGLOBIN 14.1 g/dL (12.0-16.0); IMM GRAN# 0.02 X1000 (0.0-0.04); IMM GRAN% 0.3 % (0.0-0.5); LYMPH# 0.79 X1000 (1.2-3.4); MCH 29.9 PG (27-31); MCHC 33.9 g/dL (33-37); MCV 88.3 FL (81-99); MONO# 0.37 X1000 (0.11-0.59); MONO% 4.7 % (1.7-9.3); MPV 10.5 FL (7.4-10.4); NEUT# 6.65 X1000 (1.4-6.5); NEUT% 84.4 % (42.2-75.2); PLT 259 X1000 (130-400); RBC 4.71 XMIL (4.2-5.4); RDW 13.6 % (11.5-14.5); WBC 7.87 X1000 (4.8-10.8)
[2018-06-02 14:22] LABS: BILIRUBIN URINE NEGATIVE (NEGATIVE); BLOOD URINE NEGATIVE (NEGATIVE); COLOR YELLOW; GLUCOSE URINE NEGATIVE (NEGATIVE); KETONE URINE TRACE mg/dL (NEGATIVE); LEUKOCYTES URINE LARGE (NEGATIVE); NITRITE URINE NEGATIVE (NEGATIVE); PROTEIN URINE TRACE mg/dL (NEGATIVE); TURBIDITY URINE CLEAR (CLEAR); UR EPITHELIAL CELLS <10 /HPF (<10); URINE BACTERIA 1+ /HPF; URINE RBC <10 /HPF (<10); URINE WBC TNTC /HPF (<10); UROBILINOGEN URINE NORMAL (NORMAL)
[2018-06-02 14:51] LABS: AGAP 12; ALB/GLOB RATIO 1.3; ALBUMIN 4.2 g/dL (3.5-5.0); ALKALINE PHOSPHATASE 101 U/L (32-104); BUN 12 mg/dL (8-22); CALCIUM 9.4 mg/dL (8.8-10.2); CHLORIDE 94 mmol/L (98-107); COSMO 272; CREATININE 0.7 mg/dL (0.5-0.9); ESTIMATED GFR > 60; GLUCOSE 205 mg/dL (70-104); GOT 28 U/L (10-30); GPT 22 U/L (10-36); POTASSIUM 4.1 mmol/L (3.5-5.1); SODIUM 133 mmol/L (136-145); TCO2 27 mmol/L (25-35); TOTAL BILIRUBIN 0.84 mg/dL (0.20-1.00); TOTAL PROTEIN 7.4 g/dL (6.3-8.3)
--- NOTE | 2018-06-02 15:57 | Diag Imaging Result Doc PS360 ---
EXAM: KNEE 1-2 VIEWS-RIGHT 06/02/2018 HISTORY: pain TECHNIQUE: Right knee two views COMMENT: There is no evidence of fracture or dislocation. There is generalized osteopenia. There is a bone island in the distal femur near the intercondylar notch laterally. There are varicosities seen on the medial aspect of the knee. IMPRESSION: No evidence of acute bony disease. Electronically signed by Apolinar Chawla 06/02/2018 3:54 PM
[2018-06-02] MEDS ORDERED: TYLENOL PO PRN (17:08)
[2018-06-02] MEDS ORDERED: ZOFRAN IV PRN (17:08)
[2018-06-02] MEDS ORDERED: VANCOMYCIN IV PER PHARMACY MISC SCH (17:30)
[2018-06-02] MEDS: LEVAQUIN 750 MG/D5W 750 MG/150 ML IVPB IV SCH (18:16)
[2018-06-02] MEDS ORDERED: LABETALOL IV PRN (19:23)
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
--- NOTE | 2018-06-02 20:17 | HISTORY AND PHYSICAL ---
PRIMARY CARE PROVIDER: Dr. Boswell. CHIEF COMPLAINT: The patient complained of low blood sugar, weakness, and unable to get out of the bed. She also complained of lower extremity pain and urinary incontinence. HISTORY OF PRESENT ILLNESS: Ms. Vianca Galicia is an 87-year-old female with a medical history of diabetes mellitus type 2, hypothyroidism, GERD, paroxysmal atrial fibrillation, who was brought in by her daughter and son-in-law as they had found her in the bed where she had spent most of the time in her bed with urinary incontinence, sitting in urine and the patient stated that it was because she felt like her blood sugar was low, although she was unable to check it. She felt she was too weak to get out of bed and that her legs hurt too much. Upon examination, it appears that she could very well have a left lower extremity cellulitis, as she has a dried abrasion on the wesley with redness and heat around that. She also has a chronic venous stasis of the lower extremities as well. Urine shows signs of urinary tract infection. She does have to wear adult diapers continuously due to the urinary incontinence that she has but she denies having any burning with urination. So, she will be admitted and treated for left lower extremity cellulitis and urinary tract infection and weakness. PAST MEDICAL HISTORY: 1. Diabetes mellitus type 2. 2. Hypothyroidism. 3. GERD. 4. Arthritis. 5. Left hand trigger finger. 6. Hyperlipidemia. 7. Constipation. 8. Diabetic neuropathy. 9. Paroxysmal atrial fibrillation. 10.Chronic venous stasis. PAST SURGICAL HISTORY: Bilateral cataracts. SOCIAL HISTORY: Denies tobacco, alcohol, or illicit drug use. She is from [place]. Lives at home alone. She does have family that lives about two miles away. She has to use a cane normally for ambulation. FAMILY HISTORY: Mother when she was a young girl from pneumonia. Father had anemia. She has a son with hypertension. ALLERGIES: Penicillin and sulfa. HOME MEDICATIONS: 1. Ezetimibe 10 mg p.o. daily. 2. Neurontin 200 mg p.o. twice daily. 3. Insulin 70/30, 10 units subcutaneously before meals. 4. Tresiba once as directed. 5. Timolol 0.5% one drop both eyes daily. 6. Synthroid 75 mcg p.o. daily. 7. Tylenol 650 mg p.o. every six hours p.r.n. REVIEW OF SYSTEMS: A 14-point review of systems is complete and all were negative except for those mentioned above in HPI. PHYSICAL EXAMINATION: VITAL SIGNS: Temperature 98.8, heart rate 74, respiratory rate 16, blood pressure 185/88, oxygen saturation 96% on room air. 5 ft 6 inches tall, 186 pounds. GENERAL: Ms. Vianca Galicia is an 87-year-old female. She is in no acute distress. She is a little grumpy though and really does not want to be admitted, but she is able to answer questions appropriately. HEENT: Atraumatic and normocephalic. Pupils equal, round and reactive to light. Extraocular movements intact. Mucous membranes are dry. NECK: Trachea is midline. CARDIOVASCULAR: S1 and S2. Regular rate and rhythm. No rubs, gallops or murmurs. She has 1+ lower extremity edema. Plus 2 dorsalis and radial pulses. Negative JVD or carotid bruits. PULMONARY: Clear to auscultate bilateral breath sounds. No accessory muscle use or work of breathing noted. Tolerating room air. GI: Soft. Nontender. Nondistended. Positive bowel sounds x 4. EXTREMITIES: Decreased range of motion in all extremities. 4/5 strength in all extremities. NEUROLOGICAL: Alert and oriented x 3 although she was unsure of the actual day of the week but she was completely oriented other than that. Follows commands. Decreased sensory in the lower extremities due to her diabetic neuropathy and chronic venous stasis. SKIN: Warm, dry and intact except for left lower extremity wesley - there is an abrasion with what appears to be cellulitis surrounding that area. LABORATORY DATA: White blood cell count 7000, hemoglobin 14, hematocrit 41, platelet count 259. Sodium 133, potassium 4.1, BUN 12, creatinine 0.7, glucose 205, calcium 9.4, magnesium 2.0, bilirubin 0.84. AST 28, ALT 22, albumin 4.2. Urinalysis: Trace of protein, trace of ketones, large leukocytes, too numerous to count white blood cells, and 1+ bacteria. IMAGING: X-ray of her right knee shows no acute findings. ASSESSMENT AND PLAN: 1. Left lower extremity erythema following an abrasion to the left wesley on top of her chronic venous stasis. Will order blood cultures. 2. Urinary tract infection with a history of urinary incontinence and having to wear adult diapers. Her only symptom is the incontinent. Will go ahead and treat that with Levaquin. Follow up urine culture. 3. Generalized weakness. She felt like it was from low blood sugar but it was unconfirmed as she was unable to check it. She essentially stayed in bed all day yesterday without getting up to clean herself from lying in urine. Will order Physical Therapy to assist with that. She was actually hyperglycemic upon admission, so it is unclear if she was actually hypoglycemic, if she was unable to get out of the bed then she was unable to take her insulin for her diabetes, so could very well not have been a low blood sugar that caused her weakness. 4. Diabetes mellitus type 2. Will do patterned blood glucoses, sliding scale insulin, scheduled home insulin, and diabetic diet. 5. Hypothyroidism. Continue Synthroid. 6. Gastroesophageal reflux disease. Continue proton pump inhibitor. 7. Arthritis. Tylenol. 8. Hyperlipidemia. Continue her statin. 9. History of paroxysmal atrial fibrillation. She is not on any medications for that and I believe the last time she had a paroxysmal atrial fibrillation looks like was April of 2016 with no recurring events. 10.Deep venous thrombosis prophylaxis. Will just do sequential compression devices for now. Dictated by GIANNA Cat for Pj Centeno MD cc: GIANNA Cat MD Kenneth E. Mashburn, MD I agree with above mentioned history,physical, assessment and plan. I will order CT head to evaluate for stroke. Though, on my neurological assessment she appears alert and oriented x 3. Her speech and swallowing are intact. Her vision, EOM and facial movements are intact. Her sensory and motor exam is non focal. A separate addendum has been dictated. EMILIA
[2018-06-02] MEDS: NS 1,000 ML IV SCH (20:18)
[2018-06-02] MEDS: NEURONTIN PO SCH (20:18)
[2018-06-02] MEDS: HUMULIN R SUBQ SCH (20:18)
[2018-06-03] MEDS: HUMULIN R SUBQ SCH ×4 (05:21→22:35)
[2018-06-03 07:22] LABS: BASO# 0.03 X1000 (0.0-0.2); BASO% 0.6 % (0.0-0.8); EOS# 0.15 X1000 (0.0-0.7); EOS% 3.1 % (0.0-10.0); HEMATOCRIT 40.4 % (37.0-47.0); HEMOGLOBIN 13.7 g/dL (12.0-16.0); LYMPH# 1.12 X1000 (1.2-3.4); LYMPH% 23.4 % (20.5-51.1); MCHC 33.9 g/dL (33-37); MCV 88.4 FL (81-99); MONO# 0.64 X1000 (0.11-0.59); MONO% 13.4 % (1.7-9.3); MPV 10.2 FL (7.4-10.4); NEUT# 2.84 X1000 (1.4-6.5); NEUT% 59.5 % (42.2-75.2); PLT 262 X1000 (130-400); RBC 4.57 XMIL (4.2-5.4); RDW 13.5 % (11.5-14.5); WBC 4.78 X1000 (4.8-10.8)
[2018-06-03 07:27] LABS: INR 1.04; PROTIME 14.4 Seconds (11.0-16.0); PTT 22.4 Seconds (22.3-41.8)
[2018-06-03 07:47] LABS: AGAP 10; ALB/GLOB RATIO 1.3; ALBUMIN 3.4 g/dL (3.5-5.0); ALKALINE PHOSPHATASE 85 U/L (32-104); BUN 16 mg/dL (8-22); CALCIUM 8.6 mg/dL (8.8-10.2); CHLORIDE 101 mmol/L (98-107); COSMO 274; CREATININE 0.8 mg/dL (0.5-0.9); ESTIMATED GFR > 60; GLUCOSE 108 mg/dL (70-104); GOT 21 U/L (10-30); GPT 18 U/L (10-36); MAGNESIUM 2.3 mg/dL (1.5-2.7); POTASSIUM 3.9 mmol/L (3.5-5.1); SODIUM 136 mmol/L (136-145); TCO2 25 mmol/L (25-35); TOTAL BILIRUBIN 0.83 mg/dL (0.20-1.00); TOTAL PROTEIN 6.1 g/dL (6.3-8.3)
[2018-06-03] MEDS: TIMOPTIC 0.5% OPH SOLUTION BOTH EYES SCH (08:34)
[2018-06-03] MEDS: ZETIA PO SCH (08:35)
[2018-06-03] MEDS: NEURONTIN PO SCH ×2 (08:35→22:34)
[2018-06-03] MEDS: HUMULIN 70/30 SUBQ SCH ×3 (08:35→16:03)
[2018-06-03] MEDS: SYNTHROID PO SCH (08:35)
[2018-06-03] MEDS: NS 1,000 ML IV SCH (13:12)
[2018-06-03] MEDS ORDERED: BASAGLAR SUBQ ONE (13:42)
--- NOTE | 2018-06-03 15:10 | Diag Imaging Result Doc PS360 ---
EXAM: CHEST-PORTABLE HISTORY: rehab placement TECHNIQUE: Chest single view COMPARISON: 01/22/2018 FINDINGS: The lungs are well expanded. The heart is not enlarged. The vessels are not distended. There are mild increased interstitial markings similar to the prior exam. No effusion identified. IMPRESSION: Stable chest Electronically signed by Homero Cedeno 06/03/2018 3:08 PM
--- NOTE | 2018-06-03 15:10 | PROGRESS NOTE ---
DATE: 06/03/2018 INTERVAL HISTORY: Ms. Galicia refuses to go for a CAT scan of her head since she feels her head is fine and she does not need to get the CAT scan. She did not have any other acute overnight events. SUBJECTIVE: She states she had a good night's sleep. She liked the lunch she was provided. She stated the physical therapy came by and she was able to walk 2 steps and sit at the edge of the bed. Denies any chest pain, shortness of breath. She states she is able to move all of her extremities well now. I discussed with her about the CAT scan. She states she does not need it because she does not think that she has had any stroke. I explained to her that what are the other possibilities that I would find on the CAT scan. She understands this but, despite this, does not want to go for the CAT scan. VITALS: Currently, temperature 98.1 degrees, pulse 61, respiratory rate of 18 per minute, blood pressure of 150/58, saturating 98% on room air. PHYSICAL EXAMINATION: General: Does not appear in any acute distress. Oral cavity is moist. Lungs: Air entry bilaterally equal. No wheeze, rhonchi, or crackles. Cardiovascular: S1, S2 normal. No murmur, rub, or gallop. Regular normal sinus rhythm at bedside monitor. Abdomen: Soft, nontender. She does have bilateral mild lower extremity edema and mild erythema with some bruises and very dry skin. However, no signs of overt cellulitis. She has intact bilateral dorsalis pedis and posterior tibial pulses. Neurological Examination: Alert and oriented x3. Pupils bilateral equal, reactive to light. Extraocular movements are intact. She is able to raise both eyebrows and smile equally, both sides of midline. She has intact cough reflex. Hearing and vision examination is grossly intact. Her facial sensations are intact. She is enjoying her food. She has equal sensation in bilateral upper and lower extremities. Her power is 5/5 in bilateral upper and lower extremities at the elbow, wrist, knee, hip, and ankle joints. Reflexes are 2+ bilateral pronator and knee jerks. LABS: Suggestive of normal hemoglobin, hematocrit, platelet count, normal coagulation profile, resolution of hyponatremia, hypochloremia, normal kidney function, hyperglycemia. Her urinalysis is in the lab and culture has not shown any growth to date. ASSESSMENT AND PLAN: 1. Acute encephalopathy. As per the history given by the patient's daughter on the phone, she has had fluctuating mental status recently. Currently, patient is alert and oriented x3. Appears to be baseline. She refused to get the CAT scan. It is possible she might have a mild cognitive impairment. The patient should get outpatient formal dementia evaluation. Her suspected urinary tract infection and volume depletion might be contributing to it. However, currently, she appears alert and oriented x3. 2. Acute cystitis. Continue intravenous levofloxacin until final urine culture comes back. 3. Insulin-dependent diabetes mellitus. Start patient on glargine. Continue home mealtime insulin, sliding scale insulin. 4. Hypertension, now appears to have resolved. The patient is not listed to be taking any antihypertensive medication. Continue labetalol as needed and I am going to start the patient on oral metoprolol or amlodipine or lisinopril as tolerated. 5. Continue home levothyroxine for hypothyroidism, gabapentin for peripheral neuropathy, ezetimibe for hyperlipidemia. 6. Disposition. Physical therapy has been consulted. The patient will be discharged to rehab whenever a bed becomes available. Plan of care was discussed with the patient. All of her questions have been answered. cc: Pj Centeno MD
[2018-06-03] MEDS: PRINIVIL PO SCH (16:01)
[2018-06-03] MEDS: LEVAQUIN 750 MG/D5W 750 MG/150 ML IVPB IV SCH (16:03)
[2018-06-04] MEDS: SYNTHROID PO SCH (07:52)
[2018-06-04] MEDS ORDERED: BASAGLAR SUBQ SCH (09:00)
[2018-06-04] MEDS: HUMULIN R SUBQ SCH ×5 (09:20→22:04)
[2018-06-04] MEDS: HUMULIN 70/30 SUBQ SCH ×3 (09:27→16:55)
[2018-06-04] MEDS: NEURONTIN PO SCH ×2 (09:29→21:52)
[2018-06-04] MEDS: ZETIA PO SCH (09:29)
[2018-06-04] MEDS: PRINIVIL PO SCH (09:29)
[2018-06-04] MEDS: TIMOPTIC 0.5% OPH SOLUTION BOTH EYES SCH (09:30)
[2018-06-04] MEDS: LEVAQUIN 750 MG/D5W 750 MG/150 ML IVPB IV SCH (17:24)
[2018-06-04] MEDS ORDERED: PRINIVIL PO ONE (20:35)
--- NOTE | 2018-06-04 21:38 | PROGRESS NOTE ---
DATE: 06/04/2018 INTERVAL HISTORY: No acute events. SUBJECTIVE: Patient is feeling fine. Denies any complaints. She is eating well. She is able to make good urine. She had a bowel movement. She says she was able to work out with physical therapy and go to the end of the room and come back without any trouble. OBJECTIVE: Vitals: Detect temperature 98.6, pulse 66, respiratory rate 18, blood pressure 171/80, saturating 99% on room air. General: On physical examination does not appear in any acute distress. HEENT: Oral cavity is moist. No pallor, cyanosis, clubbing, or icterus. Lungs: Air entry bilaterally equal. No wheeze, rhonchi or crackles. Heart: S1, S2 normal. No murmur, rub, or gallop. Abdomen: Soft, nontender. Extremities: Mild bilateral lower extremity edema with some bruises and very dry skin without any signs of overt cellulitis. Intact bilateral dorsalis pedis and posterior tibial pulses. Neurologic: She is alert and oriented x3. Her pupils are bilaterally equal, reactive to light. On my previous neurological examination on June 03, she did not have any focal abnormality. LABS: No CBC or BMP today. She continues to have hyperglycemia. ASSESSMENT AND PLAN: 1. Acute encephalopathy on admission as per the history given by patient's daughter on the phone. The patient has had fluctuating mental status over the last few weeks, which was worse at the time of the patient's admission. However, her mental status was normal at the time of my evaluation on admission and I had admitted her to evaluate for any stroke. However, the patient had refused to go for the CT scan. Currently, her examination is nonfocal and she does not want to go for a CT scan of her head. She may have mild cognitive impairment and she should get outpatient formal evaluation for mild cognitive impairment versus dementia. Currently, she is alert, oriented x3. and neurological exam is non focal. She is participating in PT and is able to walk to the end of the room. 2. Acute cystitis with pyuria on admission. Her urine culture and blood cultures are unremarkable. So I will stop the antibiotics. 3. Insulin-dependent diabetes mellitus with uncontrolled hyperglycemia. Increase glargine dose. Continue home dose of mealtime insulin and sliding scale insulin. I am going to increase her mealtime insulin dose as well. 4. Essential hypertension. The patient is not listed to be taking any antihypertensive medication. Will increase the lisinopril dose. She may need addition of metoprolol in future. Others: 1. Continue home levothyroxine for hypothyroidism. 2. Gabapentin for peripheral neuropathy. 3. Ezetimibe for hyperlipidemia. DISPOSITION: I was informed by secure texting that the patient may have bed at [facility] on 06/05. However, on my encounter, patient refuses to go to [facility]. If no bed is available at other rehab places tomorrow, my plan will be to discharge her home with home physical therapy. It was very late in the day and I did not have an opportunity to discuss this plan with the patient's daughter on phone nor to social work nurse. However, the patient is in agreement with this plan. cc: Pj Centeno MD MTDD
[2018-06-05] MEDS: SYNTHROID PO SCH (06:27)
[2018-06-05] MEDS: HUMULIN 70/30 SUBQ SCH (06:28)
[2018-06-05] MEDS: HUMULIN R SUBQ SCH (06:28)
[2018-06-05 08:05] LABS: HEMOGLOBIN A1C 9.6 % (4.8-6.0)
[2018-06-05 08:06] LABS: AGAP 13; BUN 14 mg/dL (8-22); CALCIUM 8.8 mg/dL (8.8-10.2); CHLORIDE 99 mmol/L (98-107); COSMO 266; CREATININE 0.8 mg/dL (0.5-0.9); ESTIMATED GFR > 60; GLUCOSE 76 mg/dL (70-104); SODIUM 133 mmol/L (136-145); TCO2 21 mmol/L (25-35)
[2018-06-05 08:10] VITALS: BP 174/81
[2018-06-05] MEDS ORDERED: BASAGLAR SUBQ SCH (09:00)
[2018-06-05] MEDS ORDERED: PRINIVIL PO SCH (09:00)
[2018-06-05] MEDS: NEURONTIN PO SCH (10:20)
[2018-06-05] MEDS: TIMOPTIC 0.5% OPH SOLUTION BOTH EYES SCH (10:20)
[2018-06-05] MEDS: ZETIA PO SCH (10:21)
[2018-06-05] MEDS ORDERED: HUMALOG SUBQ SCH ×2 (11:00→13:00)
--- NOTE | 2018-06-05 11:23 | PROGRESS NOTE ---
DATE: 06/05/2018 SUBJECTIVE: This morning Ms. Galicia refers to be feeling a lot better. She denies any complaints. OBJECTIVE: Vital Signs: Blood pressure 174/81, pulse 69, respirations 22, and temperature is 97.6 degrees. General: Ms. Galicia is an 87-year-old extremely nice elderly female. She is in bed in no distress. HEENT: Mucosa is pink and moist. Anicteric. Acyanotic. Neck: Supple. Chest: Good air entry bilaterally. There was no crepitations. No rhonchi. Cardiovascular: Regular rate and rhythm. Abdomen: Soft. Extremities: No pedal edema. There are some old chronic changes in the lower abdomen. ADMINISTRATIVE EXECUTIVE: Patient was awake, alert, and oriented. LABORATORY DATA: Data has been reviewed. Glucose this morning was 355. There was not any other labs available. CURRENT MEDICATIONS: Have all been reviewed. ASSESSMENT: 1. Acute encephalopathy on admission is resolved. It appears that that was related with glucose control. 2. Diabetes mellitus on insulin with presenting A1c of 9.6. The patient's medications have been optimized. 3. Essential hypertension stable. 4. Hypothyroidism. We will continue with the thyroid supplementation. 5. Generalized weakness and deconditioning. Patient is getting physical therapy. PLAN: In general, I understand Ms. Galicia walked about 30 feet yesterday with physical therapy with a front wheel walker. She seems to be doing remarkably okay. We are pending final arrangements for rehab placement to get her. This morning Ms. Galicia said she does not want to go to [facility], and I have communicated this to the addiction social worker. Ms Galicia prefers to go to [facility]. I understand the family members are coming to see her so I will be waiting on them to make a final decision where Ms. Galicia will go. cc: Miguel Hawk MD
[2018-06-05] MEDS ORDERED: MIRALAX PO ONE (11:50)
--- NOTE | 2018-06-05 12:47 | DISCHARGE SUMMARY ---
ADMISSION DATE: 06/02/2018 DISCHARGE DATE: 06/05/2018 ADMISSION DIAGNOSIS: 1. Acute encephalopathy. 2. Acute cystitis. 3. Insulin-dependent diabetes mellitus. 4. Acute accelerated hypertension. 5. Hyperlipidemia. 6. Hypothyroidism. DISCHARGE DIAGNOSIS: 1. Acute encephalopathy, resolved. 2. Diabetes mellitus with hemoglobin A1c of 9.6. Medications optimized. 3. Essential hypertension, stable. 4. Hypothyroidism, stable. 5. Generalized weakness and deconditioning requiring physical therapy. CONSULTATIONS: None. SURGERIES OR PROCEDURES: None. HOSPITAL COURSE: On 06/02/2018, Ms. Vianca Galicia an 87-year-old female with a medical history of diabetes mellitus type 2, hypothyroidism, GERD, paroxysmal atrial fibrillation, was brought in by her daughter and son-in-law. They found her in the bed where she had spent most of her time with urinary incontinence most of that day. The patient felt like she had a low blood sugar and that is why she was too weak to get up but was unable to check it. Her legs were weak and they hurt. Did appear that she had some lower extremity cellulitis although that was ruled out, and she had some confusion or was not her baseline but that has since resolved. Urine had no bacteria in it. Her diabetic medications were optimized, as she ran blood glucose levels as high as 300, 500s, and then actually drop off to the 30s and 40s, and blood pressure remained stable. DISCHARGE VITAL SIGNS: Temperature 97.6, heart rate 69, respiratory rate 22, blood pressure 175/81, O2 saturation 98% on room air. DISCHARGE LAB DATA: No CBC since the . Today, sodium 133, potassium 4.0, BUN 14, creatinine 0.8, glucose was 76 and initial up to 378. It looks like she even had some issues where it was 31, 36, and 41, where she received glucose. Actually, she was treated with food and orange juice and crackers. PERTINENT IMAGING: On the , she had a knee x-ray which was negative, and on the she had a chest x-ray which was stable. DISCHARGE MEDICATIONS: 1. Ezetimibe 10 mg p.o. daily. 2. Neurontin 200 mg p.o. twice daily. 3. Timolol 1 drop twice daily. 4. Insulin Lispro 5 units subcutaneously t.i.d. 6. Insulin glargine 25 units subcutaneously daily. 7. Lisinopril 20 mg p.o. daily. 8. Synthroid 75 mcg p.o. daily. 9. Tylenol 650 mg p.o. every 6 hours p.r.n. DISCHARGE ACTIVITY: As tolerated with physical therapy, watch for high risk areas for falls. DISCHARGE DIET: Diabetic. DISCHARGE INSTRUCTIONS: Get a repeat kidney function and electrolytes in 1 week since we are starting you on a new blood pressure medication. FOLLOWUP: Dr. Boswell, primary care provider. DISCHARGE DISPOSITION: [facility]. Dictated by GIANNA Cat for Miguel Hawk MD cc: GIANNA Cat MD I have seen and examined Ms Galicia today. She is stable very discharge. She is going to [facility]. I have also spoken to her daughter and son in law. They are all in agreement with the plan. I have reviewed and reconciled her home medications. Discharge time: 34 minutes. EMILIA
--- NOTE | 2018-06-09 08:00 | PROVIDER DOCUMENTATION ---
This chart was entered by Kathryn Desai Scribe, acting as scribe for Adriel Collins MD. HPI-General Adult - General Stated Complaint: WEAKNESS Time Seen by Provider: 06/02/18 13:17 Source: patient Allergies/Adverse Reactions: Patient Allergies Allergy/AdvReac Type Severity Reaction Status Date / Time Penicillins Allergy RASH Verified 06/02/18 14:18 Sulfa (Sulfonamide Allergy Unknown Verified 06/02/18 14:18 Antibiotics) Home Medications: Home Medication List Medication Instructions Recorded Confirmed Last Taken Type Ezetimibe 10 mg PO DAILY 01/23/18 06/02/18 06/01/18 History Gabapentin 200 mg PO BID 01/23/18 06/02/18 06/01/18 History Timolol 0.5% Oph Solution 1 drop BOTH EYES DAILY 01/25/18 06/02/18 06/01/18 History [Timoptic 0.5% Oph Solution] Acetaminophen [Tylenol] 650 mg PO Q6H PRN PRN tablet 01/28/18 06/02/18 06/01/18 Rx Levothyroxine [Synthroid] 75 microgm PO DAILY@0700 tablet 01/28/18 06/02/18 06/01/18 Rx Insulin Glargine [Basaglar] 25 unit SUBQ QAM insuln.pen 06/05/18 Unknown Rx Insulin Lispro [Admelog Solostar] 5 unit SQ TID #1 insuln.pen 06/05/18 Unknown Rx LISINOpril [Prinivil] 20 mg PO DAILY tab 06/05/18 Unknown Rx - History of Present Illness -Gen Adult Nature of Presenting Problems: Patient is a 87 year old female who presents to the ED via EMS with weakness. Patient's family states finding patient laying in her own urine. Patient denies fever and urinary symptoms. Family reports patient has had frequent falls. Location of Pain/Injury: reports: none Pain Radiation: reports: no radiation Quality of Pain: reports: none Severity: reports: mild Onset/Duration: reports: gradual Timing: reports: still present Context/Activities at Onset: reports: light activity Associated Symptoms: reports: weakness Similar Symptoms Previously?: Yes Recently seen or treated by another doctor?: Yes Review of Systems - Adult - REVIEW OF SYSTEMS - ADULT Constitutional: reports: no symptoms reported. denies: chills, fever, fatique Eyes: reports: no symptoms reported Ears, Nose, Mouth & Throat: reports: no symptoms reported Cardiovascular: reports: no symptoms reported Respiratory: reports: no symptoms reported Gastrointestinal: reports: no symptoms reported Genitourinary: reports: no symptoms reported. denies: dysuria, flank pain, hematuria, urinary retention Musculoskeletal: reports: see HPI, muscle weakness. denies: back pain, neck pain Integumentary: reports: no symptoms reported Neurological: reports: no symptoms reported Psychiatric: reports: no symptoms reported Endocrine: reports: no symptoms reported Hematologic/Lymphatic: reports: no symptoms reported Allergic/Immunologic: reports: no symptoms reported All Other Systems: Reviewed and Negative Past History - Adult - PAST MEDICAL HISTORY-ADULT Review of Records: reports: Nursing Assessment Review, Medications Reviewed, Social history reviewed & non-contributory. Major Childhood Illnesses: reports: denies history Cardiovascular: reports: hyperlipidemia Respiratory: reports: denies history Gastrointestinal: reports: denies history Obstetrical/Gynecological: reports: denies history Genitourinary: reports: denies history Musculoskeletal: reports: denies history Neurological: reports: denies history Psychiatric: reports: denies history Endocrine/Immune: reports: Diabetes, thyroid disorder (hypo) Other Conditions: reports: denies history - PRIOR SURGERIES/PROCEDURES Surgical/Procedure History: reports: reviewed, not pertinent - IMMUNIZATION STATUS Childhood Immunizations: See Nurse Assessment Flu Vaccine: See Nurse Assessment - FAMILY HISTORY Family History: reviewed, not pertinent - SOCIAL HISTORY Smoking: denies Substance Use: denies Physical Exam-General - PHYSICAL EXAM-ADULT Initial Vital Signs Reviewed: Yes - CONSTITUTIONAL General Appearance: alert, no apparent distress. negative: lethargic, slow to respond - HEAD, EARS, NOSE, MOUTH & THROAT HENMT: moist mucous membranes, other (subacute ecchymosis to left orbit.). negative: angioedema, hearing deficit - RESPIRATORY Respiratory: chest non-tender, lungs clear, normal breath sounds. negative: crackles, rhonchi - CARDIOVASCULAR Cardiovascular: normal peripheral pulses, regular rate, rhythm. negative: t achycardia, systolic murmur - GASTROINTESTINAL (ABDOMEN) Abdominal Exam: normal bowel sounds, non tender, soft. negative: guarding, rebound - MUSCULOSKELETAL Extremity: non-tender, other (chronic cellulitis to bilateral lower extremities.). negative: deformity, swelling - SKIN Integumentary: normal color, normal turgor, warm/dry. negative: cyanosis, yao thema, jaundice - PSYCHIATRIC Psych/Mental Status: normal mood/affect, oriented x 3. negative: paranoid, tearful Progress - PLAN OF CARE/RESULTS Progress/Plan/Lab Results: Orders Category Date Time Status CBC WITH DIFF [HEME] Stat Lab 06/02/18 13:27 Uncollected COMPREHENSIVE METABOLIC PANEL [CHEM] Stat Lab 06/02/18 13:27 Uncollected MAGNESIUM [CHEM] Stat Lab 06/02/18 13:27 Uncollected TROPONIN T Stat Lab 06/02/18 13:27 Uncollected URINALYSIS W/POSS RFLX CULT [URINALYSIS] Stat Lab 06/02/18 13:27 Uncollected Result Diagrams: 06/03/18 07:10 06/05/18 07:20 - XRAY 1 XRAY: Right XRAY Study: Knee Impression: See EMR Report ( EXAM: KNEE 1-2 VIEWS-RIGHT 06/02/2018 HISTORY: pain TECHNIQUE: Right knee two views COMMENT: There is no evidence of fracture or dislocation. There is generalized osteopenia. There is a bone island in the distal femur near the intercondylar notch laterally. There are varicosities seen on the medial aspect of the knee. IMPRESSION: No evidence of acute bony disease. Electronically signed by Apolinar Chawla 06/02/2018 3:54 PM 06/02/18 [id number] Interpreting Physician: Apolinar Chawla MD Dictated Date/Time: 06/02/18 [id number] cc: Adriel Collins MD; Sanjay Boswell MD) - CONSULTS/PCP/HOSPITALIST Notification #1 *Consult/PCP/Hospitalist*: GIANNA Philippe for Hospitalist Time Discussed: 16:49 Reason/Comments: Dr. Collins consulted with Denae about patient. Consult Disposition: Admit Departure - Departure Date of Disposition Decision: 06/02/18 Time of Disposition Decision: 17:50 DIAGNOSIS: Toxic encephalopathy, UTI (urinary tract infection) Disposition: ADMITTED INPATIENT 09 Certified Medical Emergency: Emergent Condition: Stable - Critical Care Note This patient required my direct & personal management of CC.: No Attestation - Physician/ AMY Attestation The physician spent face to face time with patient:: Yes Advanced Practice Provider documentation review:: Supervising physician onsite and consulted in the evaluation and care of this patient. The physician did have a face to face encounter with the patient. This chart was documented by the indicated scribe, (Kathryn Desai Scribe) and accurately reflects the services I performed and decisions made by me, Adriel Collins MD, as attested by the provider's signature.
== END 2018-06-05 15:38 | DRG 638 ==
LOC: SUPCPDRO → ED 13:13 → SUATTDRO 17:42 → 3N 17:42
PROVIDERS: ATTEND Internal Medicine
CPT/HCPCS: 71010; 71045; 73560; 80048; 80053; 81001; 82948; 83036; 83735; 84484; 85025; 85610; 85730; 87040; 87088; 97162; 97530; 99284; A9270; J1815; J1956; J7030; XXXXX